=== PATIENT | male | born 1945 | race Caucasian/White ===

== ENCOUNTER 2021-08-12 19:55 | Emergency (ER) | payer MEDICARE ==
[~2021-08-12] VITALS: Ht 172.7 cm; Wt 81.6 kg
[2021-08-12] MEDS ORDERED: MELO7.5T12 PO (20:49)
[2021-08-12 20:57] VITALS: BP 141/84
== END 2021-08-12 20:59 | disposition home or self-care (01) ==
LOC: EDH 19:55
DX: S63.502A Unspecified sprain of left wrist, initial encounter (principal); S60.212A Contusion of left wrist, initial encounter; M19.90 Unspecified osteoarthritis, unspecified site; E78.00 Pure hypercholesterolemia, unspecified; Z79.1 Long term (current) use of non-steroidal anti-inflammatories (NSAID); X58.XXXA Exposure to other specified factors, initial encounter; Y93.89 Activity, other specified; Y92.89 Other specified places as the place of occurrence of the external cause; Y99.8 Other external cause status
CPT/HCPCS: 73110; 73130